=== PATIENT | female | born 1955 | race Caucasian/White ===

== ENCOUNTER 2017-11-02 21:20 | Emergency (ER) | payer OTHER ==
--- NOTE | 2017-11-02 21:36 | EDPHY ---
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 Not a trauma activation. She had a previous seizure earlier today at approximately 2: 00 p.m. which was witnessed while she was at work, EMS was summoned however she declined transport. This was described as generalized tonic-clonic like movements with no incontinence no oral trauma. Similar incident occurred this evening and she agreed to transport. 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 The patient informed me that she has been titrating the dosages of Dilantin and phenobarbital over the past few weeks. Last seizure was several years ago. She denies recent head injury preceding this incident. She denies recent illness. She has been eating normally and sleeping normally. Denies alcohol or drug use. Here in emergency department she is complaining of headache, midline C-spine pain with no peripheral paresthesia, weakness, numbness. No chest pain or trauma no back pain or trauma no abdominal pain or trauma. PRIMARY CARE PROVIDER:Song REVIEW OF SYSTEMS: A ten point review of systems was performed and is negative with the exception of the items mentioned in the HPI PAST MEDICAL/SURGICAL HISTORY: no anticoagulant use, seizure disorder SOCIAL HISTORY: denies alcohol use at time of incident PHYSICAL EXAM 1) GENERAL: Well-developed, well-nourished, alert and oriented. Appears to be in no acute distress. Answering questions appropriately. 2) HEAD: Normocephalic 3) HEENT: Pupils equal, round, reactive to light bilaterally. Right periorbital ecchymosis and edema. 1.5 cm non through and through laceration to the right lid not involving the margin. She is unable to actively open the lid. Able to passively open the lid revealing no proptosis, no hyphema, no subconjunctival hemorrhage, no diplopia or abnormal gaze with extraocular movements. Upon Negative Horners. Nasopharynx, oropharynx, clear. No deformity or angulation of nose. No tongue trauma No septal hematoma. No rhinorrhea. No oral trauma. Ears bilaterally with normal tympanic membranes. No hemotympanum. No fluid or blood in the external auditory canal. No raccoon eyes. No Lam sign. Teeth are normally aligned with no gross malocclusion, TMJ bilaterally nontender, facial bones nontender including the zygomatic arch, maxilla mandible. 4) NECK: Cervical collar is on.Cervical collar is removed while holding inline traction and patient is unable to completely differentiate between true midline pain versus just lateral of midline pain.Cervical collar is replaced at that point. 5) LUNGS: Clear to auscultation bilaterally, no wheezes, no rhonchi, no retractions. No obvious signs of trauma. No chest wall pain. No flaring, no grunting. Moving symmetrically. No crepitus. 6) HEART: [Regular rate and rhythm, 7) ABDOMEN: No guarding, no rebound, no focal tenderness, no peritoneal signs, no signs of trauma, no ecchymosis 8) MUSCULOSKELETAL: Moving all extremities, no focal areas of tenderness, no obvious trauma. 9) BACK: No midline vertebral tenderness, no fluctuance, no step-off, no obvious trauma, no visual or palpable abnormality. 10) SKIN: No laceration. No abrasion 11) NEURO: Awake, alert, and oriented to person, place and time. Answers questions appropriately. There were no obvious focal neurologic abnormalities. No cerebellar dysfunction. Cranial nerves 2 through to 12 intact. Normal steady gait. Upper and lower extremities bilaterally with strength 5 / 5, reflexes 2+. DIFFERENTIAL DIAGNOSIS: In no particular order including but not limited to breakthrough seizure, medication noncompliance, malignancy, CVA (Juana Paz Kimberli) Constitutional: Initial Vital Signs Temperature (C) 36.7 C 11/02/17 21:36 Heart Rate 73 11/02/17 21:36 Respiratory Rate 20 11/02/17 21:36 Blood Pressure 154/84 H 11/02/17 21:36 O2 Sat (%) 94 11/02/17 21:36 O2 Delivery Mode Room Air Allergies/Adverse Reactions: No Known Allergies Allergy (Unverified 11/02/17 21:36) Home Medications: Medication Instructions Recorded Dilantin 11/02/17 PHENobarbital 11/02/17 Medical Decision Making - Diagnostics Imaging Results: Images reviewed myself (Juana Paz) Procedures: Procedure: Laceration repair with tissue adhesive Verbal consent was obtained from the patient. The 1.5 cm laceration on the right lid. The wound was scrubbed and explored to its base with a gloved finger. No foreign body seen, no foreign bodies palpated. There were no deep structures involved. The wound was repaired with tissue adhesive. The procedure was performed by myself. Patient has been informed that scarring will occur, although every effort has been made to minimize this. (Juana Paz ) ED Course/Re-evaluation: 9:36 p.m.: Care of patient under supervision of secondary supervising physician Dr Mayen with whom I discussed case after evaluating patient.. 10:12 p.m.: Patient's subtherapeutic Dilantin. She will be given fosphenytoin loading dose. I recommended admission to [facility] as she has had 2 seizures today. We are waiting the results of CT imaging at this time. 11:01 p.m.: CT imaging of the head interpreted by staff radiologist was petechial hemorrhage along the superior posterior left frontal cortex. No posttraumatic sequelae to the cervical spine. I will contact the [facility] physician line regarding transfer. Patient remains neurologically intact with no complaints at this time. 11:38 p.m.: Phone consultation with Dr. Afia Phillips, [facility] physician line, accepting physician is Dr. Jamil Blake, hospitalist to [facility], a direct admission with Neurosurgery consulting when patient arrived. [facility] will arranged ambulance transportation. AILEENALA paperwork completed. I discussed this with the patient she is agreeable with this plan. She is answering questions appropriately she is calm, cooperative has no complaints of pain or discomfort. (Juana Paz) I did not see this patient while she was in the emergency department. However her care was discussed with the PA while the patient was in the department. I agree with treatment plan and management (Yaw Mayen) - Data Points Laboratory Results: Laboratory Results 11/02/17 21:20 11/02/17 21:20 Medications Given: Discontinued Medications Fosphenytoin Sodium 580 mgpe/ (Sodium Chloride) 111.6 mls @ 300 mls/hr IV ONCE ONE Stop: 11/02/17 22:33 Last Admin: 11/02/17 22:42 Dose: 111.6 mls Departure - Departure Disposition: [facility] Clinical Impression: Hemorrhage, petechial, Seizure, Periorbital hematoma of right eye, Subtherapeutic serum dilantin level Right eyelid laceration Qualifiers: Encounter type: initial encounter Qualified Code(s): S01.111A - Laceration without foreign body of right eyelid and periocular area, initial encounter Condition: Fair Referrals: NONE *PRIMARY CARE P,. [Primary Care Provider] - As per Instructions
[2017-11-02 21:43] LABS: PLATELET COUNT 300 10^3/uL (150-400)
[2017-11-02] MEDS ORDERED: NS IV ONE (22:11)
[2017-11-02] MEDS ORDERED: FOSPHENYTOIN IV ONE (22:11)
[2017-11-02 23:10] LABS: INR 0.94 (0.83-1.16); PROTIME(PATIENT) 12.8 SEC (12.0-15.0)
[2017-11-02] MEDS ORDERED: SKIN ADHESIVE (DERMABOND) 1 EACH TP ONE (23:16)
--- NOTE | 2017-11-02 23:24 | CPEKG ---
Heart Rate: 65 RR Interval: 923 P-R Interval: 180 QRSD Interval: 90 QT Interval: 404 QTC Interval: 421 P [place]: 56 QRS [place]: 31 T Wave [place]: 55 EKG Severity - ABNORMAL ECG - EKG Impression: SINUS RHYTHM EKG Impression: PROBABLE POSTERIOR INFARCT Electronically Signed By: Emmanuel Mccormack 04-Nov-2017 09:40:22
[2017-11-03 00:42] VITALS: BP 113/68
== END 2017-11-03 00:49 | disposition short-term general hospital (02) ==
PROC: 08QNXZZ Repair Right Upper Eyelid, External Approach (ICD-10-PCS; principal; 2017-11-02)
DX: S05.11XA Contusion of eyeball and orbital tissues, right eye, initial encounter (principal); S01.111A Laceration without foreign body of right eyelid and periocular area, initial encounter; R23.3 Spontaneous ecchymoses; G40.909 Epilepsy, unspecified, not intractable, without status epilepticus; R89.2 Abnormal level of other drugs, medicaments and biological substances in specimens from other organs, systems and tissues; W18.39XA Other fall on same level, initial encounter; Y92.89 Other specified places as the place of occurrence of the external cause; Y99.0 Civilian activity done for income or pay; Y93.89 Activity, other specified
CPT/HCPCS: 96365; G0480; Q2009